=== PATIENT | male | born 1985 | race Caucasian/White ===

== ENCOUNTER 2023-02-22 14:54 | Inpatient (IN) | payer OTHER ==
[2023-02-22 16:50] VITALS: BMI 21.1
[2023-02-22] MEDS ORDERED: NALOXONE HCL (KLOXXADO) 8 MG SPRAY NS PRN (19:47)
[2023-02-22] MEDS ORDERED: BENZOCAINE/MENTHOL (CHLORASEPTIC ) LOZENGE MM PRN (19:47)
[2023-02-22] MEDS ORDERED: MAGNESIUM HYDROX 2400MG/30ML ORAL SUSPENSION 30 ML CUP PO PRN (19:47)
[2023-02-22] MEDS ORDERED: IBUPROFEN 400 MG TABLET (FP) PO PRN (19:47)
[2023-02-22] MEDS ORDERED: NALOXONE HCL 0.4 MG/ML VIAL IM PRN (19:47)
[2023-02-22] MEDS ORDERED: ONDANSETRON *ODT* 4 MG TABLET SL PRN (19:47)
[2023-02-22] MEDS ORDERED: guaiFENesin 600 MG TABLET.ER (FP) PO PRN (19:47)
[2023-02-22] MEDS ORDERED: IBUPROFEN 600 MG TABLET (FP) PO PRN (19:47)
[2023-02-22] MEDS ORDERED: POLYETHYLENE GLYCOL (HEALTHYLAX) 3350 17 GM PACKET PO PRN (19:47)
[2023-02-22] MEDS ORDERED: BENZONATATE 200 MG CAPSULE PO PRN (19:47)
[2023-02-22] MEDS ORDERED: LOPERAMIDE HCL 2 MG CAPSULE PO PRN (19:47)
[2023-02-22] MEDS ORDERED: P-EPHED 60MG/TRIPROLIDI 2.5MG TABLET PO PRN (19:47)
[2023-02-22] MEDS ORDERED: MAG HYDROX/AL HYDROX/SIMETH 30 ML UNIT-DOSE CUP PO PRN (19:47)
[2023-02-22] MEDS ORDERED: BISMUTH SUBSALICYLATE 524 MG/30 ML PO PRN (19:47)
[2023-02-22] MEDS ORDERED: DICYCLOMINE HCL 10 MG CAPSULE PO PRN (19:47)
[2023-02-22] MEDS ORDERED: chlordiazePOXIDE HCL 25 MG CAPSULE PO PRN (19:50)
[2023-02-22] MEDS ORDERED: chlordiazePOXIDE HCL 25 MG CAPSULE PO ONE (19:50)
[2023-02-22] MEDS ORDERED: chlordiazePOXIDE HCL 25 MG CAPSULE ONE (20:16)
[2023-02-22] MEDS ORDERED: GABAPENTIN 300 MG CAPSULE PO ONE (22:00)
[2023-02-22] MEDS ORDERED: MELATONIN 5 MG TABLETS PO SCH (22:00)
[2023-02-22] MEDS: THIAMINE HCL 100 MG TABLET (FP) PO SCH (22:09)
[2023-02-22] MEDS: chlordiazePOXIDE HCL 25 MG CAPSULE PO SCH (22:10)
[2023-02-23] MEDS: chlordiazePOXIDE HCL 25 MG CAPSULE PO SCH ×4 (05:19→22:08)
[2023-02-23] MEDS: ACETAMINOPHEN 325 MG TABLET (FP) PO PRN (05:20)
[2023-02-23] MEDS: METHOCARBAMOL 500 MG TABLET PO PRN ×2 (05:20→13:11)
[2023-02-23] MEDS: NICOTINE POLACRILEX 2 MG GUM BUC PRN (09:36)
[2023-02-23] MEDS: PRENATAL VITAMINS W/ FOLIC ACID TABLET (FP) PO SCH (10:03)
[2023-02-23] MEDS: SERTRALINE HCL 50 MG TABLET (FP) PO SCH (10:30)
[2023-02-23 10:52] LABS: HEMATOCRIT 38.4 % (35.4-49); HEMOGLOBIN 12.3 GM/dL (11.7-16.9); MCH 29.5 pg (25.7-33.7); MCHC 32.1 g/dl (32.0-35.9); MEAN CELL VOLUME 92.1 fl (80-96); MEAN PLT VOLUME 9.2 fl (7.5-11.1); PLATELET COUNT 251 10^3/uL (134-434); RBC 4.17 M/mm3 (4.00-5.60); RDW 12.6 % (11.9-15.9); WHITE BLOOD COUNT 7.4 K/mm3 (4.0-10.0)
[2023-02-23 10:57] LABS: POTASSIUM 5.2 mmol/L (3.5-5.1)
[2023-02-23 11:00] LABS: CALCIUM 9.8 mg/dL (8.5-10.1)
[2023-02-23 11:01] LABS: ALBUMIN 3.9 g/dl (3.4-5.0); BLOOD UREA NITROGEN 11.2 mg/dL (7-18)
[2023-02-23 11:04] LABS: CREATININE 0.8 mg/dL (0.55-1.3)
[2023-02-23 11:05] LABS: BILIRUBIN,TOTAL 0.6 mg/dL (0.2-1); TOT PROT 7.1 g/dl (6.4-8.2)
[2023-02-23] MEDS ORDERED: methaDONE HCL 10 MG TABLET PO SCH (11:30)
[2023-02-23] MEDS: GABAPENTIN 300 MG CAPSULE PO SCH ×2 (13:11→22:07)
[2023-02-23] MEDS ORDERED: QUEtiapine FUMARATE 50 MG TABLET PO SCH (22:00)
[2023-02-23] MEDS: QUEtiapine FUMARATE 50 MG TABLET PO SCH (22:07)
[2023-02-23] MEDS: THIAMINE HCL 100 MG TABLET (FP) PO SCH (22:07)
[2023-02-24] MEDS: ACETAMINOPHEN 325 MG TABLET (FP) PO PRN (05:18)
[2023-02-24] MEDS: GABAPENTIN 300 MG CAPSULE PO SCH ×3 (05:18→22:15)
[2023-02-24] MEDS: chlordiazePOXIDE HCL 25 MG CAPSULE PO SCH ×4 (05:18→22:15)
[2023-02-24] MEDS: METHOCARBAMOL 500 MG TABLET PO PRN ×2 (10:00→17:20)
[2023-02-24] MEDS: NICOTINE POLACRILEX 2 MG GUM BUC PRN ×2 (10:00→18:53)
[2023-02-24] MEDS: PRENATAL VITAMINS W/ FOLIC ACID TABLET (FP) PO SCH (10:00)
[2023-02-24] MEDS: SERTRALINE HCL 50 MG TABLET (FP) PO SCH (10:00)
[2023-02-24] MEDS: QUEtiapine FUMARATE 50 MG TABLET PO SCH (22:15)
[2023-02-24] MEDS: THIAMINE HCL 100 MG TABLET (FP) PO SCH (22:15)
[2023-02-25] MEDS ORDERED: chlordiazePOXIDE HCL 10 MG CAPSULE PO PRN
[2023-02-25] MEDS: chlordiazePOXIDE HCL 10 MG CAPSULE PO SCH ×4 (05:20→22:13)
[2023-02-25] MEDS: GABAPENTIN 300 MG CAPSULE PO SCH ×3 (05:20→22:13)
[2023-02-25] MEDS: PRENATAL VITAMINS W/ FOLIC ACID TABLET (FP) PO SCH (10:12)
[2023-02-25] MEDS: SERTRALINE HCL 50 MG TABLET (FP) PO SCH (10:12)
[2023-02-25] MEDS: METHOCARBAMOL 500 MG TABLET PO PRN ×2 (10:13→17:06)
[2023-02-25] MEDS: THIAMINE HCL 100 MG TABLET (FP) PO SCH (22:13)
[2023-02-25] MEDS: QUEtiapine FUMARATE 50 MG TABLET PO SCH (22:13)
[2023-02-26] MEDS: chlordiazePOXIDE HCL 10 MG CAPSULE PO SCH ×2 (05:26→16:42)
[2023-02-26] MEDS: GABAPENTIN 300 MG CAPSULE PO SCH ×3 (05:29→22:14)
[2023-02-26] MEDS: SERTRALINE HCL 50 MG TABLET (FP) PO SCH (09:47)
[2023-02-26] MEDS: METHOCARBAMOL 500 MG TABLET PO PRN ×2 (09:47→16:44)
[2023-02-26] MEDS: PRENATAL VITAMINS W/ FOLIC ACID TABLET (FP) PO SCH (09:47)
[2023-02-26] MEDS: QUEtiapine FUMARATE 50 MG TABLET PO SCH (22:14)
[2023-02-26] MEDS: THIAMINE HCL 100 MG TABLET (FP) PO SCH (22:15)
[2023-02-27] MEDS ORDERED: chlordiazePOXIDE HCL 10 MG CAPSULE PO ONE (05:00)
[2023-02-27] MEDS: GABAPENTIN 300 MG CAPSULE PO SCH ×2 (05:08→13:41)
[2023-02-27 08:48] VITALS: BP 106/64; PULSE 77; RESP 18; TEMP 97.8
[2023-02-27] MEDS: PRENATAL VITAMINS W/ FOLIC ACID TABLET (FP) PO SCH (10:14)
[2023-02-27] MEDS: METHOCARBAMOL 500 MG TABLET PO PRN (10:14)
[2023-02-27] MEDS: SERTRALINE HCL 50 MG TABLET (FP) PO SCH (10:14)
== END 2023-02-27 12:30 | disposition other institution (70) | DRG 773 ==
LOC: YASAS 14:54 → Y6N 20:31
PROVIDERS: ADMIT Allergy & Immunology; ATTEND Surgery
PROC: HZ2ZZZZ Detoxification Services for Substance Abuse Treatment (ICD-10-PCS; principal; 2023-02-22)
DX: F13.230 Sedative, hypnotic or anxiolytic dependence with withdrawal, uncomplicated (principal); F11.20 Opioid dependence, uncomplicated; F12.20 Cannabis dependence, uncomplicated; F17.290 Nicotine dependence, other tobacco product, uncomplicated; F31.9 Bipolar disorder, unspecified; F39 Unspecified mood [affective] disorder; F90.9 Attention-deficit hyperactivity disorder, unspecified type; F41.0 Panic disorder [episodic paroxysmal anxiety]; Z62.810 Personal history of physical and sexual abuse in childhood; R63.4 Abnormal weight loss; Z68.21 Body mass index [BMI] 21.0-21.9, adult; Z88.1 Allergy status to other antibiotic agents; Z59.00 Homelessness unspecified; Z56.0 Unemployment, unspecified
CPT/HCPCS: 36415; 80053; 84132; 85027; 86780; 87635; 93005; 93010

== ENCOUNTER 2023-03-14 13:00 | Inpatient (IN) | payer MEDICARE, OTHER ==
[2023-03-14 13:48] VITALS: BMI 21.9
[2023-03-14] MEDS ORDERED: COLLOIDAL OATMEAL 1 BAR EACH TP PRN (14:27)
[2023-03-14] MEDS ORDERED: NALOXONE HCL 0.4 MG/ML VIAL IM PRN (14:27)
[2023-03-14] MEDS ORDERED: LOPERAMIDE HCL 2 MG CAPSULE PO PRN (14:27)
[2023-03-14] MEDS ORDERED: MAGNESIUM HYDROX 2400MG/30ML ORAL SUSPENSION 30 ML CUP PO PRN (14:27)
[2023-03-14] MEDS ORDERED: POLYETHYLENE GLYCOL (HEALTHYLAX) 3350 17 GM PACKET PO PRN (14:27)
[2023-03-14] MEDS ORDERED: guaiFENesin 600 MG TABLET.ER (FP) PO PRN (14:27)
[2023-03-14] MEDS ORDERED: NALOXONE HCL (KLOXXADO) 8 MG SPRAY NS PRN (14:27)
[2023-03-14] MEDS ORDERED: BENZOCAINE/MENTHOL (CHLORASEPTIC ) LOZENGE MM PRN (14:27)
[2023-03-14] MEDS ORDERED: BENZONATATE 200 MG CAPSULE PO PRN (14:27)
[2023-03-14] MEDS ORDERED: methaDONE 40 MG, methaDONE 20 MG PO ONE (14:59)
[2023-03-14] MEDS ORDERED: methaDONE HCL 10 MG TABLET PO ONE (14:59)
[2023-03-14] MEDS ORDERED: NICOTINE 14 MG/24 HOURS TOPICAL PATCH TD ONE (15:49)
[2023-03-14] MEDS ORDERED: PRENATAL VITAMINS W/ FOLIC ACID TABLET (FP) PO ONE (15:49)
[2023-03-14] MEDS: PRENATAL VITAMINS W/ FOLIC ACID TABLET (FP) PO SCH (15:59)
[2023-03-14] MEDS: NICOTINE 14 MG/24 HOURS TOPICAL PATCH TD SCH (15:59)
[2023-03-14] MEDS: MELATONIN 5 MG TABLETS PO SCH (21:14)
[2023-03-14] MEDS: THIAMINE HCL 100 MG TABLET (FP) PO SCH (21:14)
[2023-03-14] MEDS: GABAPENTIN 300 MG CAPSULE PO SCH (21:14)
[2023-03-14] MEDS: hydrOXYzine PAMOATE 25 MG CAPSULE (FP) PO PRN (21:14)
[2023-03-15] MEDS: GABAPENTIN 300 MG CAPSULE PO SCH ×3 (06:01→21:24)
[2023-03-15] MEDS: MAG HYDROX/AL HYDROX/SIMETH 30 ML UNIT-DOSE CUP PO PRN (06:28)
[2023-03-15] MEDS: NICOTINE 14 MG/24 HOURS TOPICAL PATCH TD SCH (09:40)
[2023-03-15] MEDS: PRENATAL VITAMINS W/ FOLIC ACID TABLET (FP) PO SCH (09:40)
[2023-03-15] MEDS: SERTRALINE HCL 50 MG TABLET (FP) PO SCH (09:40)
[2023-03-15] MEDS ORDERED: methaDONE HCL 40 MG DISPERSABLE TABLET PO ONE (10:00)
[2023-03-15 12:14] LABS: HEMATOCRIT 37.1 % (35.4-49); MCH 29.4 pg (25.7-33.7); MCHC 32.4 g/dl (32.0-35.9); MEAN PLT VOLUME 9.8 fl (7.5-11.1); PLATELET COUNT 252 10^3/uL (134-434); RBC 4.07 M/mm3 (4.00-5.60); RDW 12.7 % (11.9-15.9)
[2023-03-15 12:20] LABS: CHLORIDE 101 mmol/L (98-107); POTASSIUM 4.1 mmol/L (3.5-5.1); SODIUM 139 mmol/L (136-145)
[2023-03-15 12:36] LABS: BILIRUBIN,TOTAL 0.5 mg/dL (0.2-1)
[2023-03-15 12:38] LABS: ALBUMIN 3.9 g/dl (3.4-5.0); ANION GAP 7 mmol/L (4-13); BLOOD UREA NITROGEN 16.1 mg/dL (7-18); CALCIUM 9.4 mg/dL (8.5-10.1); CO2 31 mmol/L (21-32); GLUCOSE,RANDOM 81 mg/dL (74-106)
[2023-03-15 12:41] LABS: CREATININE 0.8 mg/dL (0.55-1.3); SGOT/AST 40 U/L (15-37); SGPT/ALT 11 U/L (13-61)
[2023-03-15 12:43] LABS: TOT PROT 6.9 g/dl (6.4-8.2)
[2023-03-15 12:44] LABS: ALK PHOS 56 U/L (45-117)
[2023-03-15 12:45] LABS: SYPHILIS W/ RPR CONF NON-REACTIVE (NONREACTIVE)
[2023-03-15] MEDS: THIAMINE HCL 100 MG TABLET (FP) PO SCH (21:24)
[2023-03-15] MEDS: MIRTAZAPINE 15 MG TABLET (FP) PO SCH (21:24)
[2023-03-15] MEDS: QUEtiapine FUMARATE 100 MG TABLET (FP) PO SCH (21:24)
[2023-03-15] MEDS: MELATONIN 5 MG TABLETS PO SCH (21:24)
[2023-03-16] MEDS: hydrOXYzine PAMOATE 25 MG CAPSULE (FP) PO PRN ×3 (06:24→21:06)
[2023-03-16] MEDS: GABAPENTIN 300 MG CAPSULE PO SCH ×3 (06:24→21:05)
[2023-03-16] MEDS ORDERED: methaDONE HCL 40 MG DISPERSABLE TABLET PO SCH (07:35)
[2023-03-16] MEDS: methaDONE HCL 40 MG DISPERSABLE TABLET PO SCH (08:32)
[2023-03-16] MEDS: SERTRALINE HCL 50 MG TABLET (FP) PO SCH (10:05)
[2023-03-16] MEDS: NICOTINE 14 MG/24 HOURS TOPICAL PATCH TD SCH (10:05)
[2023-03-16] MEDS: PRENATAL VITAMINS W/ FOLIC ACID TABLET (FP) PO SCH (10:05)
[2023-03-16 12:24] LABS: URINE APPEARANCE CLEAR; URINE BILIRUBIN NEGATIVE (NEGATIVE); URINE COLOR YELLOW; URINE GLUCOSE (UA) NEGATIVE (NEGATIVE); URINE KETONE NEGATIVE (NEGATIVE); URINE LEUK ESTERASE NEGATIVE (NEGATIVE); URINE NITRITE NEGATIVE (NEGATIVE); URINE PROTEIN NEGATIVE (NEGATIVE); URINE UROBILINOGEN 0.2 mg/dL (0.2-1.0)
[2023-03-16] MEDS: MELATONIN 5 MG TABLETS PO SCH (21:05)
[2023-03-16] MEDS: THIAMINE HCL 100 MG TABLET (FP) PO SCH (21:05)
[2023-03-16] MEDS: MIRTAZAPINE 15 MG TABLET (FP) PO SCH (21:05)
[2023-03-16] MEDS: QUEtiapine FUMARATE 100 MG TABLET (FP) PO SCH (21:05)
[2023-03-17] MEDS: methaDONE HCL 40 MG DISPERSABLE TABLET PO SCH (06:27)
[2023-03-17] MEDS: GABAPENTIN 300 MG CAPSULE PO SCH ×3 (06:27→21:25)
[2023-03-17] MEDS: NICOTINE 14 MG/24 HOURS TOPICAL PATCH TD SCH (10:04)
[2023-03-17] MEDS: SERTRALINE HCL 50 MG TABLET (FP) PO SCH (10:05)
[2023-03-17] MEDS: PRENATAL VITAMINS W/ FOLIC ACID TABLET (FP) PO SCH (10:05)
[2023-03-17] MEDS: hydrOXYzine PAMOATE 25 MG CAPSULE (FP) PO PRN ×2 (10:06→21:25)
[2023-03-17] MEDS: THIAMINE HCL 100 MG TABLET (FP) PO SCH (21:25)
[2023-03-17] MEDS: QUEtiapine FUMARATE 100 MG TABLET (FP) PO SCH (21:25)
[2023-03-17] MEDS: MIRTAZAPINE 15 MG TABLET (FP) PO SCH (21:25)
[2023-03-17] MEDS: MELATONIN 5 MG TABLETS PO SCH (21:26)
[2023-03-18] MEDS: methaDONE HCL 40 MG DISPERSABLE TABLET PO SCH (06:03)
[2023-03-18] MEDS: GABAPENTIN 300 MG CAPSULE PO SCH ×3 (06:04→21:21)
[2023-03-18] MEDS: NICOTINE 14 MG/24 HOURS TOPICAL PATCH TD SCH (10:48)
[2023-03-18] MEDS: PRENATAL VITAMINS W/ FOLIC ACID TABLET (FP) PO SCH (10:50)
[2023-03-18] MEDS: SERTRALINE HCL 50 MG TABLET (FP) PO SCH (10:50)
[2023-03-18] MEDS: hydrOXYzine PAMOATE 25 MG CAPSULE (FP) PO PRN ×2 (10:50→18:00)
[2023-03-18] MEDS: THIAMINE HCL 100 MG TABLET (FP) PO SCH (21:21)
[2023-03-18] MEDS: MIRTAZAPINE 15 MG TABLET (FP) PO SCH (21:21)
[2023-03-18] MEDS: QUEtiapine FUMARATE 100 MG TABLET (FP) PO SCH (21:21)
[2023-03-18] MEDS: MELATONIN 5 MG TABLETS PO SCH (21:21)
[2023-03-19] MEDS: GABAPENTIN 300 MG CAPSULE PO SCH ×3 (06:06→21:09)
[2023-03-19] MEDS: methaDONE HCL 40 MG DISPERSABLE TABLET PO SCH (06:06)
[2023-03-19] MEDS: IBUPROFEN 400 MG TABLET (FP) PO PRN (06:06)
[2023-03-19] MEDS: hydrOXYzine PAMOATE 25 MG CAPSULE (FP) PO PRN ×2 (10:07→21:09)
[2023-03-19] MEDS: SERTRALINE HCL 50 MG TABLET (FP) PO SCH (10:07)
[2023-03-19] MEDS: PRENATAL VITAMINS W/ FOLIC ACID TABLET (FP) PO SCH (10:07)
[2023-03-19] MEDS: NICOTINE 14 MG/24 HOURS TOPICAL PATCH TD SCH (10:08)
[2023-03-19] MEDS: QUEtiapine FUMARATE 100 MG TABLET (FP) PO SCH (21:09)
[2023-03-19] MEDS: THIAMINE HCL 100 MG TABLET (FP) PO SCH (21:09)
[2023-03-19] MEDS: MELATONIN 5 MG TABLETS PO SCH (21:09)
[2023-03-19] MEDS: MIRTAZAPINE 15 MG TABLET (FP) PO SCH (21:09)
[2023-03-20] MEDS: GABAPENTIN 300 MG CAPSULE PO SCH ×3 (05:50→21:20)
[2023-03-20] MEDS: methaDONE HCL 40 MG DISPERSABLE TABLET PO SCH (05:50)
[2023-03-20] MEDS: hydrOXYzine PAMOATE 25 MG CAPSULE (FP) PO PRN ×2 (09:56→15:50)
[2023-03-20] MEDS: PRENATAL VITAMINS W/ FOLIC ACID TABLET (FP) PO SCH (09:56)
[2023-03-20] MEDS: SERTRALINE HCL 50 MG TABLET (FP) PO SCH (09:56)
[2023-03-20] MEDS: NICOTINE 14 MG/24 HOURS TOPICAL PATCH TD SCH (09:56)
[2023-03-20] MEDS: THIAMINE HCL 100 MG TABLET (FP) PO SCH (21:20)
[2023-03-20] MEDS: QUEtiapine FUMARATE 100 MG TABLET (FP) PO SCH (21:20)
[2023-03-20] MEDS: MIRTAZAPINE 15 MG TABLET (FP) PO SCH (21:20)
[2023-03-20] MEDS: MELATONIN 5 MG TABLETS PO SCH (21:20)
[2023-03-21] MEDS: GABAPENTIN 300 MG CAPSULE PO SCH ×3 (06:06→21:06)
[2023-03-21] MEDS ORDERED: methaDONE HCL 40 MG DISPERSABLE TABLET PO SCH (08:30)
[2023-03-21] MEDS: PRENATAL VITAMINS W/ FOLIC ACID TABLET (FP) PO SCH (09:58)
[2023-03-21] MEDS: hydrOXYzine PAMOATE 25 MG CAPSULE (FP) PO PRN (09:58)
[2023-03-21] MEDS: SERTRALINE HCL 50 MG TABLET (FP) PO SCH (09:59)
[2023-03-21] MEDS: ACETAMINOPHEN 325 MG TABLET (FP) PO PRN (09:59)
[2023-03-21] MEDS: NICOTINE 14 MG/24 HOURS TOPICAL PATCH TD SCH (09:59)
[2023-03-21] MEDS: MELATONIN 5 MG TABLETS PO SCH (21:06)
[2023-03-21] MEDS: QUEtiapine FUMARATE 100 MG TABLET (FP) PO SCH (21:06)
[2023-03-21] MEDS: MIRTAZAPINE 15 MG TABLET (FP) PO SCH (21:06)
[2023-03-21] MEDS: THIAMINE HCL 100 MG TABLET (FP) PO SCH (21:06)
[2023-03-22] MEDS: GABAPENTIN 300 MG CAPSULE PO SCH ×3 (06:02→21:16)
[2023-03-22] MEDS: PRENATAL VITAMINS W/ FOLIC ACID TABLET (FP) PO SCH (10:00)
[2023-03-22] MEDS: NICOTINE 14 MG/24 HOURS TOPICAL PATCH TD SCH (10:00)
[2023-03-22] MEDS: SERTRALINE HCL 50 MG TABLET (FP) PO SCH (10:01)
[2023-03-22] MEDS: hydrOXYzine PAMOATE 25 MG CAPSULE (FP) PO PRN (10:02)
[2023-03-22] MEDS: MIRTAZAPINE 15 MG TABLET (FP) PO SCH (21:16)
[2023-03-22] MEDS: THIAMINE HCL 100 MG TABLET (FP) PO SCH (21:16)
[2023-03-22] MEDS: MELATONIN 5 MG TABLETS PO SCH (21:16)
[2023-03-22] MEDS: QUEtiapine FUMARATE 50 MG TABLET PO SCH (21:16)
[2023-03-23] MEDS: GABAPENTIN 300 MG CAPSULE PO SCH ×3 (06:08→21:06)
[2023-03-23] MEDS: NICOTINE 14 MG/24 HOURS TOPICAL PATCH TD SCH (10:08)
[2023-03-23] MEDS: PRENATAL VITAMINS W/ FOLIC ACID TABLET (FP) PO SCH (10:08)
[2023-03-23] MEDS: hydrOXYzine PAMOATE 25 MG CAPSULE (FP) PO PRN ×3 (10:09→21:07)
[2023-03-23] MEDS: SERTRALINE HCL 50 MG TABLET (FP) PO SCH (10:09)
[2023-03-23] MEDS: ACETAMINOPHEN 325 MG TABLET (FP) PO PRN ×2 (16:58→20:02)
[2023-03-23] MEDS: QUEtiapine FUMARATE 50 MG TABLET PO SCH (21:06)
[2023-03-23] MEDS: MELATONIN 5 MG TABLETS PO SCH (21:06)
[2023-03-23] MEDS: MIRTAZAPINE 15 MG TABLET (FP) PO SCH (21:06)
[2023-03-23] MEDS: THIAMINE HCL 100 MG TABLET (FP) PO SCH (21:06)
[2023-03-24] MEDS: GABAPENTIN 300 MG CAPSULE PO SCH ×3 (06:22→21:19)
[2023-03-24] MEDS: NICOTINE 14 MG/24 HOURS TOPICAL PATCH TD SCH (10:18)
[2023-03-24] MEDS: PRENATAL VITAMINS W/ FOLIC ACID TABLET (FP) PO SCH (10:18)
[2023-03-24] MEDS: SERTRALINE HCL 50 MG TABLET (FP) PO SCH (10:18)
[2023-03-24] MEDS: hydrOXYzine PAMOATE 25 MG CAPSULE (FP) PO PRN ×2 (10:19→21:19)
[2023-03-24] MEDS ORDERED: QUEtiapine FUMARATE 25 MG TABLET ONE (20:22)
[2023-03-24] MEDS: THIAMINE HCL 100 MG TABLET (FP) PO SCH (21:19)
[2023-03-24] MEDS: MIRTAZAPINE 15 MG TABLET (FP) PO SCH (21:19)
[2023-03-24] MEDS: QUEtiapine FUMARATE 50 MG TABLET PO SCH (21:20)
[2023-03-24] MEDS: MELATONIN 5 MG TABLETS PO SCH (21:20)
[2023-03-25] MEDS: GABAPENTIN 300 MG CAPSULE PO SCH ×3 (06:19→21:06)
[2023-03-25] MEDS: NICOTINE 14 MG/24 HOURS TOPICAL PATCH TD SCH (09:49)
[2023-03-25] MEDS: PRENATAL VITAMINS W/ FOLIC ACID TABLET (FP) PO SCH (09:49)
[2023-03-25] MEDS: SERTRALINE HCL 50 MG TABLET (FP) PO SCH (09:50)
[2023-03-25] MEDS: hydrOXYzine PAMOATE 25 MG CAPSULE (FP) PO PRN (15:56)
[2023-03-25] MEDS: IBUPROFEN 600 MG TABLET (FP) PO PRN (15:56)
[2023-03-25] MEDS: THIAMINE HCL 100 MG TABLET (FP) PO SCH (21:06)
[2023-03-25] MEDS: MIRTAZAPINE 15 MG TABLET (FP) PO SCH (21:06)
[2023-03-25] MEDS: QUEtiapine FUMARATE 50 MG TABLET PO SCH (21:06)
[2023-03-25] MEDS: MELATONIN 5 MG TABLETS PO SCH (21:07)
[2023-03-26] MEDS: GABAPENTIN 300 MG CAPSULE PO SCH ×3 (05:57→21:18)
[2023-03-26] MEDS: PRENATAL VITAMINS W/ FOLIC ACID TABLET (FP) PO SCH (10:08)
[2023-03-26] MEDS: SERTRALINE HCL 50 MG TABLET (FP) PO SCH (10:09)
[2023-03-26] MEDS: NICOTINE 14 MG/24 HOURS TOPICAL PATCH TD SCH (10:09)
[2023-03-26] MEDS: hydrOXYzine PAMOATE 25 MG CAPSULE (FP) PO PRN ×2 (10:11→21:18)
[2023-03-26] MEDS: MIRTAZAPINE 15 MG TABLET (FP) PO SCH (21:18)
[2023-03-26] MEDS: THIAMINE HCL 100 MG TABLET (FP) PO SCH (21:18)
[2023-03-26] MEDS: MELATONIN 5 MG TABLETS PO SCH (21:18)
[2023-03-26] MEDS: QUEtiapine FUMARATE 50 MG TABLET PO SCH (21:18)
[2023-03-27] MEDS: GABAPENTIN 300 MG CAPSULE PO SCH ×3 (06:16→21:01)
[2023-03-27] MEDS: SERTRALINE HCL 50 MG TABLET (FP) PO SCH (09:43)
[2023-03-27] MEDS: PRENATAL VITAMINS W/ FOLIC ACID TABLET (FP) PO SCH (09:43)
[2023-03-27] MEDS: hydrOXYzine PAMOATE 25 MG CAPSULE (FP) PO PRN ×2 (09:45→18:53)
[2023-03-27] MEDS: NICOTINE 14 MG/24 HOURS TOPICAL PATCH TD SCH (09:46)
[2023-03-27] MEDS: MAG HYDROX/AL HYDROX/SIMETH 30 ML UNIT-DOSE CUP PO PRN (14:44)
[2023-03-27] MEDS: IBUPROFEN 600 MG TABLET (FP) PO PRN (18:53)
[2023-03-27] MEDS: MIRTAZAPINE 15 MG TABLET (FP) PO SCH (21:01)
[2023-03-27] MEDS: QUEtiapine FUMARATE 50 MG TABLET PO SCH (21:01)
[2023-03-27] MEDS: THIAMINE HCL 100 MG TABLET (FP) PO SCH (21:02)
[2023-03-27] MEDS: MELATONIN 5 MG TABLETS PO SCH (21:02)
[2023-03-28] MEDS: GABAPENTIN 300 MG CAPSULE PO SCH ×3 (05:57→21:12)
[2023-03-28] MEDS: PRENATAL VITAMINS W/ FOLIC ACID TABLET (FP) PO SCH (10:37)
[2023-03-28] MEDS: SERTRALINE HCL 50 MG TABLET (FP) PO SCH (10:37)
[2023-03-28] MEDS: NICOTINE 14 MG/24 HOURS TOPICAL PATCH TD SCH (10:37)
[2023-03-28] MEDS: hydrOXYzine PAMOATE 25 MG CAPSULE (FP) PO PRN ×2 (10:38→21:13)
[2023-03-28] MEDS: MIRTAZAPINE 15 MG TABLET (FP) PO SCH (21:12)
[2023-03-28] MEDS: QUEtiapine FUMARATE 50 MG TABLET PO SCH (21:12)
[2023-03-28] MEDS: THIAMINE HCL 100 MG TABLET (FP) PO SCH (21:12)
[2023-03-28] MEDS: MELATONIN 5 MG TABLETS PO SCH (22:20)
[2023-03-29] MEDS: GABAPENTIN 300 MG CAPSULE PO SCH ×3 (06:15→21:13)
[2023-03-29 07:31] VITALS: RESP 18
[2023-03-29] MEDS: PRENATAL VITAMINS W/ FOLIC ACID TABLET (FP) PO SCH (10:02)
[2023-03-29] MEDS: NICOTINE 14 MG/24 HOURS TOPICAL PATCH TD SCH (10:03)
[2023-03-29] MEDS: SERTRALINE HCL 50 MG TABLET (FP) PO SCH (10:03)
[2023-03-29] MEDS: hydrOXYzine PAMOATE 25 MG CAPSULE (FP) PO PRN ×2 (10:04→21:13)
[2023-03-29] MEDS: QUEtiapine FUMARATE 50 MG TABLET PO SCH (21:12)
[2023-03-29] MEDS: MELATONIN 5 MG TABLETS PO SCH (21:12)
[2023-03-29] MEDS: THIAMINE HCL 100 MG TABLET (FP) PO SCH (21:13)
[2023-03-29] MEDS: MIRTAZAPINE 15 MG TABLET (FP) PO SCH (21:13)
[2023-03-30] MEDS: GABAPENTIN 300 MG CAPSULE PO SCH ×3 (05:45→21:03)
[2023-03-30] MEDS: PRENATAL VITAMINS W/ FOLIC ACID TABLET (FP) PO SCH (09:36)
[2023-03-30] MEDS: SERTRALINE HCL 50 MG TABLET (FP) PO SCH (09:36)
[2023-03-30] MEDS: NICOTINE 14 MG/24 HOURS TOPICAL PATCH TD SCH (09:36)
[2023-03-30] MEDS: hydrOXYzine PAMOATE 25 MG CAPSULE (FP) PO PRN ×2 (09:38→21:03)
[2023-03-30] MEDS: IBUPROFEN 600 MG TABLET (FP) PO PRN (11:26)
[2023-03-30] MEDS: THIAMINE HCL 100 MG TABLET (FP) PO SCH (21:02)
[2023-03-30] MEDS: MIRTAZAPINE 15 MG TABLET (FP) PO SCH (21:02)
[2023-03-30] MEDS: QUEtiapine FUMARATE 50 MG TABLET PO SCH (21:03)
[2023-03-30] MEDS: MELATONIN 5 MG TABLETS PO SCH (21:04)
[2023-03-31] MEDS: GABAPENTIN 300 MG CAPSULE PO SCH ×3 (06:00→21:26)
[2023-03-31] MEDS: NICOTINE 14 MG/24 HOURS TOPICAL PATCH TD SCH (09:52)
[2023-03-31] MEDS: PRENATAL VITAMINS W/ FOLIC ACID TABLET (FP) PO SCH (09:52)
[2023-03-31] MEDS: SERTRALINE HCL 50 MG TABLET (FP) PO SCH (09:52)
[2023-03-31] MEDS: hydrOXYzine PAMOATE 25 MG CAPSULE (FP) PO PRN ×2 (09:54→21:27)
[2023-03-31] MEDS: IBUPROFEN 600 MG TABLET (FP) PO PRN (14:56)
[2023-03-31] MEDS ORDERED: QUEtiapine FUMARATE 25 MG TABLET ONE (19:14)
[2023-03-31] MEDS: QUEtiapine FUMARATE 50 MG TABLET PO SCH (21:26)
[2023-03-31] MEDS: THIAMINE HCL 100 MG TABLET (FP) PO SCH (21:26)
[2023-03-31] MEDS: MIRTAZAPINE 15 MG TABLET (FP) PO SCH (21:26)
[2023-03-31] MEDS: MELATONIN 5 MG TABLETS PO SCH (21:26)
[2023-04-01] MEDS: GABAPENTIN 300 MG CAPSULE PO SCH ×3 (06:00→21:07)
[2023-04-01] MEDS: PRENATAL VITAMINS W/ FOLIC ACID TABLET (FP) PO SCH (09:20)
[2023-04-01] MEDS: SERTRALINE HCL 50 MG TABLET (FP) PO SCH (09:20)
[2023-04-01] MEDS: NICOTINE 14 MG/24 HOURS TOPICAL PATCH TD SCH (09:20)
[2023-04-01] MEDS: hydrOXYzine PAMOATE 25 MG CAPSULE (FP) PO PRN (13:21)
[2023-04-01] MEDS: MELATONIN 5 MG TABLETS PO SCH (21:06)
[2023-04-01] MEDS: QUEtiapine FUMARATE 50 MG TABLET PO SCH (21:07)
[2023-04-01] MEDS: MIRTAZAPINE 15 MG TABLET (FP) PO SCH (21:07)
[2023-04-01] MEDS: THIAMINE HCL 100 MG TABLET (FP) PO SCH (21:07)
[2023-04-02] MEDS: GABAPENTIN 300 MG CAPSULE PO SCH ×3 (05:53→21:10)
[2023-04-02] MEDS: PRENATAL VITAMINS W/ FOLIC ACID TABLET (FP) PO SCH (10:05)
[2023-04-02] MEDS: NICOTINE 14 MG/24 HOURS TOPICAL PATCH TD SCH (10:05)
[2023-04-02] MEDS: SERTRALINE HCL 50 MG TABLET (FP) PO SCH (10:05)
[2023-04-02] MEDS: hydrOXYzine PAMOATE 25 MG CAPSULE (FP) PO PRN ×2 (10:06→21:11)
[2023-04-02] MEDS: MIRTAZAPINE 15 MG TABLET (FP) PO SCH (21:10)
[2023-04-02] MEDS: QUEtiapine FUMARATE 50 MG TABLET PO SCH (21:10)
[2023-04-02] MEDS: MELATONIN 5 MG TABLETS PO SCH (21:11)
[2023-04-02] MEDS: THIAMINE HCL 100 MG TABLET (FP) PO SCH (21:12)
[2023-04-03] MEDS: GABAPENTIN 300 MG CAPSULE PO SCH ×3 (05:55→21:28)
[2023-04-03] MEDS: NICOTINE 14 MG/24 HOURS TOPICAL PATCH TD SCH (09:59)
[2023-04-03] MEDS: PRENATAL VITAMINS W/ FOLIC ACID TABLET (FP) PO SCH (09:59)
[2023-04-03] MEDS: SERTRALINE HCL 50 MG TABLET (FP) PO SCH (10:00)
[2023-04-03] MEDS: hydrOXYzine PAMOATE 25 MG CAPSULE (FP) PO PRN ×2 (10:00→21:30)
[2023-04-03] MEDS: IBUPROFEN 600 MG TABLET (FP) PO PRN (14:57)
[2023-04-03] MEDS: MIRTAZAPINE 15 MG TABLET (FP) PO SCH (21:28)
[2023-04-03] MEDS: THIAMINE HCL 100 MG TABLET (FP) PO SCH (21:28)
[2023-04-03] MEDS: QUEtiapine FUMARATE 50 MG TABLET PO SCH (21:28)
[2023-04-03] MEDS: MELATONIN 5 MG TABLETS PO SCH (21:28)
[2023-04-04] MEDS: GABAPENTIN 300 MG CAPSULE PO SCH ×3 (05:44→21:10)
[2023-04-04] MEDS: SERTRALINE HCL 50 MG TABLET (FP) PO SCH (09:58)
[2023-04-04] MEDS: PRENATAL VITAMINS W/ FOLIC ACID TABLET (FP) PO SCH (09:58)
[2023-04-04] MEDS: NICOTINE 14 MG/24 HOURS TOPICAL PATCH TD SCH (09:58)
[2023-04-04] MEDS: hydrOXYzine PAMOATE 25 MG CAPSULE (FP) PO PRN (09:59)
[2023-04-04] MEDS: MAG HYDROX/AL HYDROX/SIMETH 30 ML UNIT-DOSE CUP PO PRN (10:57)
[2023-04-04] MEDS: IBUPROFEN 400 MG TABLET (FP) PO PRN (13:41)
[2023-04-04] MEDS: MELATONIN 5 MG TABLETS PO SCH (21:08)
[2023-04-04] MEDS: THIAMINE HCL 100 MG TABLET (FP) PO SCH (21:08)
[2023-04-04] MEDS: QUEtiapine FUMARATE 50 MG TABLET PO SCH (21:09)
[2023-04-04] MEDS: MIRTAZAPINE 15 MG TABLET (FP) PO SCH (21:10)
[2023-04-05] MEDS: GABAPENTIN 300 MG CAPSULE PO SCH ×3 (05:58→21:04)
[2023-04-05] MEDS: PRENATAL VITAMINS W/ FOLIC ACID TABLET (FP) PO SCH (09:54)
[2023-04-05] MEDS: NICOTINE 14 MG/24 HOURS TOPICAL PATCH TD SCH (09:54)
[2023-04-05] MEDS: IBUPROFEN 600 MG TABLET (FP) PO PRN (09:55)
[2023-04-05] MEDS: SERTRALINE HCL 50 MG TABLET (FP) PO SCH (09:55)
[2023-04-05] MEDS: hydrOXYzine PAMOATE 25 MG CAPSULE (FP) PO PRN ×2 (09:55→21:05)
[2023-04-05] MEDS: THIAMINE HCL 100 MG TABLET (FP) PO SCH (21:04)
[2023-04-05] MEDS: QUEtiapine FUMARATE 50 MG TABLET PO SCH (21:04)
[2023-04-05] MEDS: MIRTAZAPINE 15 MG TABLET (FP) PO SCH (21:04)
[2023-04-05] MEDS: MELATONIN 5 MG TABLETS PO SCH (21:04)
[2023-04-06] MEDS: GABAPENTIN 300 MG CAPSULE PO SCH ×3 (05:59→21:03)
[2023-04-06] MEDS: NICOTINE 14 MG/24 HOURS TOPICAL PATCH TD SCH (10:09)
[2023-04-06] MEDS: PRENATAL VITAMINS W/ FOLIC ACID TABLET (FP) PO SCH (10:09)
[2023-04-06] MEDS: SERTRALINE HCL 50 MG TABLET (FP) PO SCH (10:10)
[2023-04-06] MEDS: hydrOXYzine PAMOATE 25 MG CAPSULE (FP) PO PRN ×2 (10:11→16:54)
[2023-04-06] MEDS: MELATONIN 5 MG TABLETS PO SCH (21:03)
[2023-04-06] MEDS: MIRTAZAPINE 15 MG TABLET (FP) PO SCH (21:03)
[2023-04-06] MEDS: THIAMINE HCL 100 MG TABLET (FP) PO SCH (21:03)
[2023-04-06] MEDS: QUEtiapine FUMARATE 50 MG TABLET PO SCH (21:03)
[2023-04-07] MEDS: GABAPENTIN 300 MG CAPSULE PO SCH ×3 (06:00→21:35)
[2023-04-07] MEDS: PRENATAL VITAMINS W/ FOLIC ACID TABLET (FP) PO SCH (09:45)
[2023-04-07] MEDS: NICOTINE 14 MG/24 HOURS TOPICAL PATCH TD SCH (09:45)
[2023-04-07] MEDS: hydrOXYzine PAMOATE 25 MG CAPSULE (FP) PO PRN ×2 (09:46→16:44)
[2023-04-07] MEDS: SERTRALINE HCL 50 MG TABLET (FP) PO SCH (09:46)
[2023-04-07] MEDS ORDERED: QUEtiapine FUMARATE 25 MG TABLET ONE (19:29)
[2023-04-07] MEDS: MIRTAZAPINE 15 MG TABLET (FP) PO SCH (21:35)
[2023-04-07] MEDS: QUEtiapine FUMARATE 50 MG TABLET PO SCH (21:35)
[2023-04-07] MEDS: THIAMINE HCL 100 MG TABLET (FP) PO SCH (21:36)
[2023-04-07] MEDS: MELATONIN 5 MG TABLETS PO SCH (21:36)
[2023-04-08] MEDS: GABAPENTIN 300 MG CAPSULE PO SCH ×3 (05:55→21:17)
[2023-04-08 07:13] VITALS: PULSE 71
[2023-04-08] MEDS: PRENATAL VITAMINS W/ FOLIC ACID TABLET (FP) PO SCH (09:48)
[2023-04-08] MEDS: SERTRALINE HCL 50 MG TABLET (FP) PO SCH (09:48)
[2023-04-08] MEDS: NICOTINE 14 MG/24 HOURS TOPICAL PATCH TD SCH (09:48)
[2023-04-08] MEDS: hydrOXYzine PAMOATE 25 MG CAPSULE (FP) PO PRN ×2 (09:49→21:17)
[2023-04-08] MEDS: IBUPROFEN 600 MG TABLET (FP) PO PRN (15:54)
[2023-04-08] MEDS: THIAMINE HCL 100 MG TABLET (FP) PO SCH (21:17)
[2023-04-08] MEDS: MIRTAZAPINE 15 MG TABLET (FP) PO SCH (21:17)
[2023-04-08] MEDS: QUEtiapine FUMARATE 50 MG TABLET PO SCH (21:17)
[2023-04-08] MEDS: MELATONIN 5 MG TABLETS PO SCH (21:17)
[2023-04-09] MEDS: GABAPENTIN 300 MG CAPSULE PO SCH (06:05)
[2023-04-09 07:14] VITALS: BP 135/85; TEMP 98.1
[2023-04-09] MEDS: PRENATAL VITAMINS W/ FOLIC ACID TABLET (FP) PO SCH (09:05)
[2023-04-09] MEDS: SERTRALINE HCL 50 MG TABLET (FP) PO SCH (09:05)
[2023-04-09] MEDS: NICOTINE 14 MG/24 HOURS TOPICAL PATCH TD SCH (09:06)
== END 2023-04-09 09:27 | disposition home or self-care (01) | DRG 772 ==
LOC: YASAS 13:00 → Y5N 18:23
PROVIDERS: ADMIT Allergy & Immunology; ATTEND Psychiatry & Neurology Pain Medicine
PROC: HZ42ZZZ Group Counseling for Substance Abuse Treatment, Cognitive-Behavioral (ICD-10-PCS; principal; 2023-03-14)
DX: F11.20 Opioid dependence, uncomplicated (principal); F12.20 Cannabis dependence, uncomplicated; F17.210 Nicotine dependence, cigarettes, uncomplicated; F31.9 Bipolar disorder, unspecified; F19.280 Other psychoactive substance dependence with psychoactive substance-induced anxiety disorder; F19.282 Other psychoactive substance dependence with psychoactive substance-induced sleep disorder; F19.24 Other psychoactive substance dependence with psychoactive substance-induced mood disorder; F43.10 Post-traumatic stress disorder, unspecified; Z62.810 Personal history of physical and sexual abuse in childhood; Z59.00 Homelessness unspecified; Z56.0 Unemployment, unspecified; Z88.1 Allergy status to other antibiotic agents
CPT/HCPCS: 36415; 80053; 80307; 81003; 85027; 86780; 86803; 87635; 87811

== ENCOUNTER 2023-11-27 17:31 | Inpatient (IN) | payer OTHER ==
[2023-11-27 17:57] VITALS: BMI 26.4
[2023-11-27] MEDS ORDERED: NALOXONE HCL 0.4 MG/ML VIAL IM PRN (18:42)
[2023-11-27] MEDS ORDERED: LOPERAMIDE HCL 2 MG CAPSULE PO PRN (18:42)
[2023-11-27] MEDS ORDERED: NALOXONE (NARCAN) HCL 4 MG/0.1 ML SPRAY NS PRN (18:42)
[2023-11-27] MEDS ORDERED: IBUPROFEN 400 MG TABLET (FP) PO PRN (18:42)
[2023-11-27] MEDS ORDERED: BENZOCAINE/MENTHOL (CHLORASEPTIC ) LOZENGE MM PRN (18:42)
[2023-11-27] MEDS ORDERED: P-EPHED 60MG/TRIPROLIDI 2.5MG TABLET PO PRN (18:42)
[2023-11-27] MEDS ORDERED: POLYETHYLENE GLYCOL (HEALTHYLAX) 3350 17 GM PACKET PO PRN (18:42)
[2023-11-27] MEDS ORDERED: MAGNESIUM HYDROX 2400MG/30ML ORAL SUSPENSION 30 ML CUP PO PRN (18:42)
[2023-11-27] MEDS ORDERED: guaiFENesin 600 MG TABLET.ER (FP) PO PRN (18:42)
[2023-11-27] MEDS ORDERED: ACETAMINOPHEN 325 MG TABLET (FP) PO PRN (18:42)
[2023-11-27] MEDS ORDERED: DICYCLOMINE HCL 10 MG CAPSULE PO PRN (18:42)
[2023-11-27] MEDS ORDERED: MAG HYDROX/AL HYDROX/SIMETH 30 ML UNIT-DOSE CUP PO PRN (18:42)
[2023-11-27] MEDS ORDERED: BISMUTH SUBSALICYLATE 524 MG/30 ML PO PRN (18:42)
[2023-11-27] MEDS ORDERED: NICOTINE POLACRILEX 2 MG LOZENGE BC PRN (18:42)
[2023-11-27] MEDS ORDERED: BENZONATATE 200 MG CAPSULE PO PRN (18:42)
[2023-11-27] MEDS ORDERED: cloNIDine HCL 0.1 MG TABLET PO PRN (18:45)
[2023-11-27] MEDS: methaDONE HCL 10 MG TABLET (FOR DETOX USE ONLY) PO ONE (20:09)
[2023-11-27] MEDS: THIAMINE 100 MG TABLET PO SCH (22:48)
[2023-11-27] MEDS: MELATONIN 5 MG TABLETS PO SCH (22:48)
[2023-11-27] MEDS: diazePAM 5 MG TABLET PO SCH (22:48)
[2023-11-28] MEDS: PRENATAL VITAMINS W/ FOLIC ACID TABLET (FP) PO SCH (09:22)
[2023-11-28] MEDS: SERTRALINE HCL 50 MG TABLET (FP) PO SCH (10:45)
[2023-11-28 11:32] LABS: HEMATOCRIT 39.5 % (35.4-49); HEMOGLOBIN 13.1 GM/dL (11.7-16.9); MCH 29.2 pg (25.7-33.7); MCHC 33.2 g/dl (32.0-35.9); MEAN CELL VOLUME 87.9 fl (80-96); MEAN PLT VOLUME 10.1 fl (7.5-11.1); PLATELET COUNT 186 10^3/uL (134-434); RBC 4.49 M/mm3 (4.00-5.60); RDW 13.6 % (11.9-15.9); WHITE BLOOD COUNT 6.7 K/mm3 (4.0-10.0)
[2023-11-28 11:41] LABS: POTASSIUM 4.1 mmol/L (3.5-5.1)
[2023-11-28 11:44] LABS: BLOOD UREA NITROGEN 13.3 mg/dL (7-18); CALCIUM 8.8 mg/dL (8.5-10.1)
[2023-11-28 11:45] LABS: ALBUMIN 3.6 g/dl (3.4-5.0)
[2023-11-28 11:48] LABS: CREATININE 0.7 mg/dL (0.55-1.3)
[2023-11-28 11:49] LABS: BILIRUBIN,TOTAL 0.8 mg/dL (0.2-1); TOT PROT 6.7 g/dl (6.4-8.2)
[2023-11-28] MEDS: GABAPENTIN 300 MG CAPSULE PO SCH (13:56)
[2023-11-28] MEDS: IBUPROFEN 600 MG TABLET (FP) PO PRN (17:23)
[2023-11-28] MEDS: METHOCARBAMOL 500 MG TABLET PO PRN (17:23)
[2023-11-28] MEDS: QUEtiapine FUMARATE 50 MG TABLET PO SCH (22:19)
[2023-11-28] MEDS: MIRTAZAPINE 15 MG TABLET (FP) PO SCH (22:20)
[2023-11-29] MEDS: diazePAM 5 MG TABLET PO SCH (05:21)
[2023-11-29] MEDS: methaDONE HCL 10 MG TABLET (FOR DETOX USE ONLY) PO ONE (09:33)
[2023-11-29] MEDS: diazePAM 5 MG TABLET PO PRN (17:13)
[2023-11-30] MEDS: diazePAM 5 MG TABLET PO SCH (05:51)
[2023-11-30] MEDS: NICOTINE POLACRILEX 2 MG GUM BUC PRN (09:56)
[2023-12-01] MEDS: diazePAM 5 MG TABLET PO ONE (05:13)
[2023-12-01] MEDS ORDERED: methaDONE HCL 10 MG TABLET (FOR DETOX USE ONLY) PO ONE (10:00)
[2023-12-01] MEDS: methaDONE HCL 10 MG TABLET PO ONE (10:13)
[2023-12-02 09:13] VITALS: RESP 18
[2023-12-02] MEDS ORDERED: methaDONE HCL 10 MG TABLET PO ONE (10:00)
[2023-12-02 12:53] VITALS: BP 123/86; PULSE 85; TEMP 97.9
== END 2023-12-02 14:33 | disposition other institution (70) | DRG 773 ==
LOC: YASAS 17:31 → Y6N 19:37
PROVIDERS: ADMIT Allergy & Immunology; ATTEND Surgery
PROC: HZ2ZZZZ Detoxification Services for Substance Abuse Treatment (ICD-10-PCS; principal; 2023-11-27)
DX: F11.23 Opioid dependence with withdrawal (principal); F10.230 Alcohol dependence with withdrawal, uncomplicated; F13.20 Sedative, hypnotic or anxiolytic dependence, uncomplicated; F14.20 Cocaine dependence, uncomplicated; F12.20 Cannabis dependence, uncomplicated; F17.210 Nicotine dependence, cigarettes, uncomplicated; F25.1 Schizoaffective disorder, depressive type; F19.282 Other psychoactive substance dependence with psychoactive substance-induced sleep disorder; F19.280 Other psychoactive substance dependence with psychoactive substance-induced anxiety disorder; F19.24 Other psychoactive substance dependence with psychoactive substance-induced mood disorder; G25.81 Restless legs syndrome; Z86.59 Personal history of other mental and behavioral disorders; Z88.1 Allergy status to other antibiotic agents
CPT/HCPCS: 36415; 80053; 80305; 85027; 86780; 87811

== ENCOUNTER 2023-12-02 14:46 | Inpatient (IN) | payer OTHER ==
[~2023-12-02 14:46] MED LIST: BENZONATATE 200 MG CAPSULE PO PRN; LOPERAMIDE HCL 2 MG CAPSULE PO PRN; MAG HYDROX/AL HYDROX/SIMETH 30 ML UNIT-DOSE CUP PO PRN; MAGNESIUM HYDROX 2400MG/30ML ORAL SUSPENSION 30 ML CUP PO PRN; NALOXONE (NARCAN) HCL 4 MG/0.1 ML SPRAY NS PRN; NALOXONE HCL 0.4 MG/ML VIAL IM PRN; NICOTINE 7 MG/24 HOURS TOPICAL PATCH TD PRN; NICOTINE POLACRILEX 2 MG GUM BUC PRN; NICOTINE POLACRILEX 2 MG LOZENGE BC PRN; POLYETHYLENE GLYCOL (HEALTHYLAX) 3350 17 GM PACKET PO PRN; guaiFENesin 600 MG TABLET.ER (FP) PO PRN
[2023-12-02] MEDS: GABAPENTIN 300 MG CAPSULE PO SCH (15:07)
[2023-12-02] MEDS: MELATONIN 5 MG TABLETS PO SCH (21:04)
[2023-12-02] MEDS: THIAMINE 100 MG TABLET PO SCH (21:04)
[2023-12-02] MEDS: QUEtiapine FUMARATE 50 MG TABLET PO SCH (21:05)
[2023-12-02] MEDS: MIRTAZAPINE 15 MG TABLET (FP) PO SCH (21:05)
[2023-12-03] MEDS ORDERED: methaDONE HCL 10 MG TABLET PO SCH (06:00)
[2023-12-03] MEDS: SERTRALINE HCL 50 MG TABLET (FP) PO SCH (09:49)
[2023-12-03] MEDS: PRENATAL VITAMINS W/ FOLIC ACID TABLET (FP) PO SCH (09:50)
[2023-12-04] MEDS ORDERED: NICOTINE POLACRILEX 4 MG GUM BUC PRN (16:27)
[2023-12-04] MEDS ORDERED: methaDONE HCL 10 MG TABLET PO ONE (17:45)
[2023-12-04] MEDS: methaDONE HCL 10 MG TABLET PO ONE (17:52)
[2023-12-04] MEDS: NICOTINE 14 MG/24 HOURS TOPICAL PATCH TD SCH (17:54)
[2023-12-04] MEDS: QUEtiapine FUMARATE 100 MG TABLET (FP) PO SCH (21:27)
[2023-12-04] MEDS: GABAPENTIN 300 MG CAPSULE PO SCH (21:27)
[2023-12-05] MEDS: methaDONE HCL 10 MG TABLET PO SCH (06:07)
[2023-12-06] MEDS: NICOTINE 7 MG/24 HOURS TOPICAL PATCH TD SCH (10:07)
[2023-12-06] MEDS: CLINDAMYCIN PHOSPHATE 1% TOPICAL GEL 30 GM TUBE TP SCH (21:07)
[2023-12-07] MEDS: IBUPROFEN 400 MG TABLET (FP) PO PRN (15:17)
[2023-12-10] MEDS: methaDONE HCL 40 MG DISPERSABLE TABLET PO SCH (06:06)
[2023-12-10] MEDS: IBUPROFEN 600 MG TABLET (FP) PO PRN (11:07)
[2023-12-11] MEDS: ACETAMINOPHEN 325 MG TABLET (FP) PO PRN (15:33)
[2023-12-16] MEDS ORDERED: BENZONATATE 200 MG CAPSULE PO PRN (13:29)
[2023-12-16] MEDS ORDERED: DICYCLOMINE HCL 10 MG CAPSULE PO PRN (13:29)
[2023-12-16] MEDS ORDERED: guaiFENesin 600 MG TABLET.ER (FP) PO PRN (13:29)
[2023-12-16] MEDS ORDERED: BISMUTH SUBSALICYLATE 524 MG/30 ML PO PRN (13:29)
[2023-12-17] MEDS ORDERED: cloNIDine HCL 0.1 MG TABLET PO PRN (14:18)
[2023-12-17] MEDS: clonazePAM 0.5 MG ODT TABLETS SL PRN (15:04)
[2023-12-17] MEDS: cloNIDine HCL 0.1 MG TABLET PO PRN (17:16)
[2023-12-18] MEDS: METHOCARBAMOL 500 MG TABLET PO PRN (10:22)
[2023-12-18] MEDS: hydrOXYzine PAMOATE 25 MG CAPSULE (FP) PO PRN (18:06)
[2023-12-19] MEDS: BUPRENORPHINE HCL 150 MCG, BUPRENORPHINE HCL 75 MCG BC SCH (06:31)
[2023-12-19] MEDS: methaDONE HCL 10 MG TABLET PO SCH (06:32)
[2023-12-19] MEDS ORDERED: BUPRENORPHINE HCL 150 MCG, BUPRENORPHINE HCL 75 MCG BC SCH (10:00)
[2023-12-20] MEDS: cloNIDine HCL 0.1 MG TABLET PO PRN (16:45)
[2023-12-20] MEDS: clonazePAM 0.5 MG ODT TABLETS SL PRN (21:04)
[2023-12-21] MEDS: BUPRENORPHINE HCL 150 MCG, BUPRENORPHINE HCL 75 MCG BC SCH (06:15)
[2023-12-21] MEDS ORDERED: BUPRENORPHINE HCL 150 MCG, BUPRENORPHINE HCL 75 MCG BC SCH (10:00)
[2023-12-21] MEDS: ONDANSETRON *ODT* 4 MG TABLET SL PRN (19:44)
[2023-12-23] MEDS: BUPRENORPHINE HCL 450 MCG FILM BC SCH (06:09)
[2023-12-23] MEDS: methaDONE HCL 10 MG TABLET PO SCH (06:09)
[2023-12-23] MEDS: BENZOCAINE/MENTHOL (CHLORASEPTIC ) LOZENGE MM PRN (06:10)
[2023-12-23] MEDS ORDERED: methaDONE HCL 10 MG TABLET PO SCH (10:00)
[2023-12-23] MEDS ORDERED: BUPRENORPHINE HCL 450 MCG FILM BC SCH (10:00)
[2023-12-25] MEDS: BUPRENORPHINE/NALOXONE 2 MG/0.5 MG FILM PACKET SL ONE (06:10)
[2023-12-25] MEDS ORDERED: BUPRENORPHINE/NALOXONE 2 MG/0.5 MG FILM PACKET SL ONE (10:00)
[2023-12-25] MEDS: METHOCARBAMOL 500 MG TABLET PO PRN (17:33)
[2023-12-26] MEDS: BUPRENORPHINE/NALOXONE 2 MG/0.5 MG FILM PACKET SL SCH (06:07)
[2023-12-26] MEDS ORDERED: BUPRENORPHINE/NALOXONE 2 MG/0.5 MG FILM PACKET SL SCH (10:00)
[2023-12-27] MEDS ORDERED: BUPRENORPHINE/NALOXONE 4 MG/1 MG FILM PACKET SL ONE ×2 (06:00→10:00)
[2023-12-27] MEDS: BUPRENORPHINE/NALOXONE 4 MG/1 MG FILM PACKET SL ONE (06:08)
[2023-12-27] MEDS: methaDONE HCL 10 MG TABLET PO SCH (06:08)
[2023-12-27] MEDS ORDERED: methaDONE HCL 10 MG TABLET PO SCH (10:00)
[2023-12-27] MEDS: clonazePAM 0.25 MG ODT TABLETS SL PRN (12:22)
[2023-12-27] MEDS: BUPRENORPHINE/NALOXONE 2 MG/0.5 MG FILM PACKET SL ONE (17:32)
[2023-12-28] MEDS: BUPRENORPHINE/NALOXONE 4 MG/1 MG FILM PACKET SL SCH (06:12)
[2023-12-28] MEDS ORDERED: BUPRENORPHINE/NALOXONE 4 MG/1 MG FILM PACKET SL SCH (10:00)
[2023-12-29] MEDS: BUPRENORPHINE/NALOXONE 8 MG/2 MG FILM PACKET SL ONE (06:09)
[2023-12-29] MEDS ORDERED: BUPRENORPHINE/NALOXONE 8 MG/2 MG FILM PACKET SL ONE (10:00)
[2023-12-30] MEDS: BUPRENORPHINE/NALOXONE 8 MG/2 MG FILM PACKET SL SCH (06:17)
[2023-12-30] MEDS ORDERED: BUPRENORPHINE/NALOXONE 8 MG/2 MG FILM PACKET SL SCH (10:00)
[2023-12-30 20:51] VITALS: PULSE 83; RESP 18
[2023-12-31 07:07] VITALS: BP 114/74; TEMP 97.2
[2023-12-31] MEDS: BUPRENORPHINE/NALOXONE 8 MG/2 MG FILM PACKET SL ONE (08:36)
[2023-12-31] MEDS: methaDONE HCL 10 MG TABLET PO ONE (08:38)
== END 2023-12-31 09:10 | disposition home or self-care (01) | DRG 772 ==
LOC: YASAS 14:46 → Y3E 14:47
PROVIDERS: ADMIT Allergy & Immunology; ATTEND Psychiatry & Neurology Pain Medicine
PROC: HZ42ZZZ Group Counseling for Substance Abuse Treatment, Cognitive-Behavioral (ICD-10-PCS; principal; 2023-12-02)
DX: F11.20 Opioid dependence, uncomplicated (principal); F13.20 Sedative, hypnotic or anxiolytic dependence, uncomplicated; F14.20 Cocaine dependence, uncomplicated; F12.20 Cannabis dependence, uncomplicated; F17.210 Nicotine dependence, cigarettes, uncomplicated; F25.1 Schizoaffective disorder, depressive type; F41.9 Anxiety disorder, unspecified; F39 Unspecified mood [affective] disorder; F32.A Depression, unspecified; L21.9 Seborrheic dermatitis, unspecified; Z59.00 Homelessness unspecified
CPT/HCPCS: Q0162